=== PATIENT | male | born 1985 | race Caucasian/White ===

== ENCOUNTER 2018-07-25 12:30 | Emergency (ER) | payer OTHER ==
[2018-07-25] MEDS: AUGMENTIN 875 MG TAB PO (13:07)
== END 2018-07-25 13:21 | disposition home or self-care (01) ==
LOC: M ED 12:30
DX: H65.02 Acute serous otitis media, left ear (principal)
CPT/HCPCS: 99282

== ENCOUNTER 2023-06-30 23:21 | Emergency (ER) | payer OTHER ==
[~2023-06-30] VITALS: Ht 177.8 cm; Wt 76.7 kg
[~2023-06-30 23:21] MED LIST: AUGM875T28 PO
[2023-06-30 23:22] VITALS: BP 133/84; TEMP 97.1; O2SAT 98
[2023-06-30] MEDS ORDERED: BUSP15TA47 PO (23:49)
[2023-06-30] MEDS ORDERED: BUPR15TA PO (23:49)
[2023-06-30] MEDS ORDERED: HYDR-3363 PO (23:49)
[2023-06-30] MEDS ORDERED: ACET-907 PO (23:53)
[2023-06-30] MEDS ORDERED: IBUP-1114 PO (23:53)
== END 2023-07-01 01:41 | disposition left against medical advice (07) ==
LOC: M ED 23:21
DX: Z53.21 Procedure and treatment not carried out due to patient leaving prior to being seen by health care provider (principal)

== ENCOUNTER 2023-07-10 12:41 | Emergency (ER) | payer OTHER ==
[~2023-07-10] VITALS: Ht 175.3 cm; Wt 77.3 kg
[~2023-07-10 12:41] MED LIST changes: +ACET-907 PO; +BUPR15TA PO; +BUSP15TA47 PO; +HYDR-3363 PO; +IBUP-1114 PO
[2023-07-10 12:42] VITALS: BP 122/81; TEMP 97.8; O2SAT 98
[2023-07-10] MEDS ORDERED: ZOLO50TA PO (13:00)
== END 2023-07-10 15:43 | disposition left against medical advice (07) ==
LOC: M ED 12:41
DX: Z53.21 Procedure and treatment not carried out due to patient leaving prior to being seen by health care provider (principal)

== ENCOUNTER 2024-11-22 05:14 | Emergency (ER) | payer OTHER ==
[~2024-11-22] VITALS: Ht 175.3 cm; Wt 84.5 kg
[~2024-11-22 05:14] MED LIST changes: +ZOLO50TA PO
[2024-11-22] MEDS: LIDOCAINE W/EPINEPHRINE 1% 20ML VIAL SC ONE (06:40)
[2024-11-22 07:09] LABS: BASO # 0.1 10^3/uL (0.0-0.2); BASO % 0.8 % (0.0-1.0); EOS # 0.1 10^3/uL (0.0-0.5); EOS % 1.1 % (0.0-3.0); HEMATOCRIT 39.2 % (42.0-52.0); HEMOGLOBIN 13.6 g/dl (13.5-17.5); LYMPH # 1.4 10^3/uL (1.5-5.0); LYMPH % 15.8 % (24.0-44.0); MEAN CORPUSCULAR HEMOGLOBIN 30.7 pg (27.0-33.0); MEAN CORPUSCULAR HGB CONC 34.7 g/dl (32.0-36.5); MEAN CORPUSCULAR VOLUME 88.5 fl (80.0-96.0); MONO # 0.7 10^3/uL (0.0-0.8); MONO % 7.9 % (2.0-8.0); NEUTROPHILS # 6.7 10^3/uL (1.5-8.5); NEUTROPHILS % 74.1 % (36.0-66.0); PLATELET COUNT, AUTOMATED 204 10^3/uL (150-450); RED BLOOD COUNT 4.43 10^6/uL (4.30-6.10)
[2024-11-22] MEDS: KETOROLAC 30 MG/ML 1ML VIAL IV ONE (07:17)
[2024-11-22 07:34] LABS: ETHYL ALCOHOL (ETHANOL) < 0.003 % (0.000-0.010)
[2024-11-22] MEDS: NEOSPORIN OINT 0.9 GM PKT TOP ONE (07:35)
[2024-11-22 07:36] LABS: BLOOD UREA NITROGEN 15 MG/DL (9-23); CARBON DIOXIDE LEVEL 29 MMOL/L (20-31); CHLORIDE LEVEL 110 MMOL/L (98-107); CK-MB VALUE MASS 2.4 NG/ML (<3.6); CREATININE FOR GFR 0.67 MG/DL (0.70-1.30); GLOMERULAR FILTRATION RATE > 60.0 (>60); GLUCOSE, FASTING 93 MG/DL (60-100); MAGNESIUM LEVEL 1.8 MG/DL (1.8-2.4); POTASSIUM SERUM 4.4 MMOL/L (3.5-5.1); SODIUM LEVEL 143 MMOL/L (136-145)
[2024-11-22] MEDS: BOOSTRIX VACCINE (TETANUS/DIPHTH/ACEL. PERTUSSIS) 0.5ML SYR IM.IMMUN ONE (07:36)
[2024-11-22 07:41] LABS: CPK CREATINE PHOSPHOKINASE 214 U/L (46-171); MB/CK RELATIVE INDEX 1.12 (< OR =4)
[2024-11-22 08:18] VITALS: TEMP 97.8
[2024-11-22 09:37] LABS: CK-MB VALUE MASS 2.6 NG/ML (<3.6)
[2024-11-22 09:38] LABS: MB/CK RELATIVE INDEX 1.31 (< OR =4)
[2024-11-22 09:45] VITALS: BP 104/65
[2024-11-22 10:00] LABS: AMPHETAMINES LEVEL URINE NEGATIVE (NEGATIVE); BARBITURATES URINE NEGATIVE (NEGATIVE); BENZODIAZEPINES URINE NEGATIVE (NEGATIVE); COCAINE METABOLITE URINE NEGATIVE (NEGATIVE); METHADONE URINE NEGATIVE (NEGATIVE); OPIATES URINE NEGATIVE (NEGATIVE); PHENCYCLIDINE URINE NEGATIVE (NEGATIVE)
[2024-11-22 10:06] LABS: CANNABINOIDS URINE POSITIVE (NEGATIVE)
[2024-11-22 10:09] VITALS: O2SAT 98
[2024-11-22] MEDS ORDERED: AMOX875T PO (10:09)
[2024-11-22] MEDS ORDERED: HYDR-3713 PO (10:09)
[2024-11-22] MEDS: NORCO, ANEXSIA 5/325MG TABLET (HYDROcodone/ACETAMINOPHEN) PO ONE (10:09)
== END 2024-11-22 10:21 | disposition home or self-care (01) ==
LOC: M ED 05:14
DX: R55 Syncope and collapse (principal); S01.81XA Laceration without foreign body of other part of head, initial encounter; S02.652A Fracture of angle of left mandible, initial encounter for closed fracture; M26.602 Left temporomandibular joint disorder, unspecified; W19.XXXA Unspecified fall, initial encounter; R00.1 Bradycardia, unspecified; Z79.2 Long term (current) use of antibiotics; Z79.1 Long term (current) use of non-steroidal anti-inflammatories (NSAID); Z79.899 Other long term (current) drug therapy; Z23 Encounter for immunization
CPT/HCPCS: 12002; 70450; 70486; 72125; 80048; 80307; 82077; 82550; 82553; 83735; 84484; 85025; 90471; 90715; 93005; 93041; 96374; 99285; J1885